=== PATIENT | male | born 1990 | race Caucasian/White ===

== ENCOUNTER 2023-11-11 13:35 | Outpatient (CLI) | payer BC | END 2023-11-11 13:36 | disposition home or self-care (01) | LOC: BICRAD 13:35 | PROVIDERS: ATTEND Nurse Practitioner Family | DX: R05.3 Chronic cough (principal); R06.02 Shortness of breath; R06.2 Wheezing; J98.4 Other disorders of lung | CPT/HCPCS: 71046 ==